=== PATIENT | male | born 1985 | race Caucasian/White ===

== ENCOUNTER 2018-03-30 10:37 | Inpatient (IN) | payer OTHER ==
[2018-03-30 10:57] LABS: ADD MAN DIFF? NO
[2018-03-30 10:59] LABS: BASOPHILS % 0.2 % (0.0-2.0); EOSINOPHILS # 0.1 10^3/ul (0.0-0.5); EOSINOPHILS % 0.5 % (0.0-7.0); HEMATOCRIT 29.6 % (42.0-52.0); HEMOGLOBIN 9.9 g/dl (14.0-18.0); LYMPHOCYTES # 3.5 10^3/ul (0.8-2.9); LYMPHOCYTES % 28.6 % (15.0-51.0); MEAN CORPUSCULAR HEMOGLOBIN 30.7 pg (29.0-33.0); MEAN CORPUSCULAR HGB CONC 33.4 g/dl (32.0-37.0); MEAN CORPUSCULAR VOLUME 91.9 fl (82.0-101.0); MEAN PLATELET VOLUME 9.9 fl (7.4-10.4); MONOCYTE # 1.1 10^3/ul (0.3-0.9); MONOCYTES % 8.6 % (0.0-11.0); NEUTROPHIL # 7.4 10^3/ul (1.6-7.5); PLATELET COUNT 309 10^3/UL (140-415); RED BLOOD COUNT 3.22 10^6/ul (4.70-6.10); RED CELL DISTRIBUTION WIDTH 12.2 % (11.5-14.5)
[2018-03-30 10:59] LABS: WHITE BLOOD COUNT 12.3 10^3/ul (4.8-10.8)
[2018-03-30] MEDS: SOD CHLORIDE 0.9% 1,000 ML IV ×2 (11:05→15:25)
[2018-03-30] MEDS: PANTOPRAZOLE IV 80 MG in SOD CHLORIDE 0.9% 100 ML IVPB (11:06)
[2018-03-30] MEDS: PANTOPRAZOLE 40 MG INJ IV (11:06)
[2018-03-30] MEDS: ONDANSETRON 4 MG INJ IV ×2 (11:06→14:44)
[2018-03-30 11:22] LABS: INR 1.08; PROTIME 14.1 Sec (11.9-14.9); PT RATIO 1.1
[2018-03-30 11:23] LABS: PARTIAL THROMBOPLASTIN TIME 27.3 Sec (23.0-35.0)
[2018-03-30] MEDS: PANTOPRAZOLE IV 80 MG in SOD CHLORIDE 0.9% 100 ML IV ×2 (11:25→18:10)
[2018-03-30 11:39] LABS: ALANINE AMINOTRANSFERASE 27 IU/L (13-69); ALBUMIN 2.9 g/dl (3.3-4.9); ALBUMIN/GLOBULIN RATIO 1.03; ALKALINE PHOSPHATASE 46 IU/L (42-121); AMYLASE 32 U/L (11-123); ANION GAP 14 (5-13); ASPARTATE AMINO TRANSFERASE 22 IU/L (15-46); BILIRUBIN,INDIRECT 0.3 mg/dl (0-1.1); BILIRUBIN,TOTAL 0.3 mg/dl (0.2-1.3); BLOOD UREA NITROGEN 35 mg/dl (7-20); CALCIUM 8.1 mg/dl (8.4-10.2); CARBON DIOXIDE 26 mmol/L (21-31); CHLORIDE 107 mmol/L (97-110); CREATININE 0.69 mg/dl (0.61-1.24); Estimated GFR > 60 mL/min (>60); GLUCOSE 116 mg/dl (70-220); LIPASE 37 U/L (23-300); POTASSIUM 3.9 mmol/L (3.5-5.1); SODIUM 147 mmol/L (135-144); TOTAL PROTEIN 5.7 g/dl (6.1-8.1)
[2018-03-30 11:45] LABS: ACETAMINOPHEN < 10.0 ug/ml (10.0-30.0)
[2018-03-30 11:46] LABS: ETHANOL < 10.0 mg/dl; SALICYLATE < 1.0 mg/dl (5.0-30.0)
[2018-03-30 11:50] LABS: TROPONIN-I < 0.012 ng/ml (0.000-0.120)
[2018-03-30 12:22] LABS: ADD UMIC NO; UR ASCORBIC ACID NEGATIVE (NEGATIVE); UR BILIRUBIN (Dip) NEGATIVE (NEGATIVE); UR BLOOD (Dip) NEGATIVE (NEGATIVE); UR CLARITY CLEAR (CLEAR); UR COLOR YELLOW (YELLOW); UR GLUCOSE (Dip) NEGATIVE (NEGATIVE); UR KETONES (Dip) NEGATIVE (NEGATIVE); UR LEUKOCYTE ESTERASE (Dip) NEGATIVE Leu/ul (NEGATIVE); UR NITRITE (Dip) NEGATIVE (NEGATIVE); UR TOTAL PROTEIN (Dip) NEGATIVE (NEGATIVE); UR UROBILINOGEN (Dip) NEGATIVE (NEGATIVE)
[2018-03-30 12:37] LABS: AMPHETAMINE/METHAMPHETAMINE Negative (NEGATIVE); BARBITURATES Negative (NEGATIVE); BENZODIAZEPINES Negative (NEGATIVE); CANNABINOIDS Negative (NEGATIVE); COCAINE Negative (NEGATIVE); OPIATES Negative (NEGATIVE)
[2018-03-30] MEDS: IOHEXOL 300MG/ML 150 ML BTL (14:24)
[2018-03-30] MEDS: SOD CHLORIDE 0.9% 100 ML (14:24)
[2018-03-30] MEDS ORDERED: ONDANSETRON 4 MG INJ IV (14:30)
[2018-03-30] MEDS ORDERED: ACETAMINOPHEN 325 MG TAB PO ×2 (14:30→15:00)
[2018-03-30] MEDS ORDERED: morphine 4 MG/ML VIAL (14:42)
[2018-03-30] MEDS: morphine 4 MG/ML VIAL IV (14:44)
[2018-03-30] MEDS ORDERED: NACL 0.9% 3 ML SYG IV (15:00)
[2018-03-30] MEDS ORDERED: PANTOPRAZOLE IV 80 MG in SOD CHLORIDE 0.9% 100 ML IV (15:00)
[2018-03-30] MEDS: CEFTRIAXONE 1 GM/50 ML (PMX) 50 ML IVPB (15:26)
[2018-03-30] MEDS: SUCRALFATE (100 MG/ML) 10ML CUP PO ×2 (18:09→20:06)
[2018-03-30] MEDS: LIDOCAINE/MYLANTA 40 ML BTL PO (18:09)
[2018-03-30] MEDS: AZITHROMYCIN 500MG/NS (PMX) 250 ML IVPB (18:09)
[2018-03-30] MEDS: OCTREOTIDE 1 MG in DEXTROSE 5% 95 ML IV (18:10)
[2018-03-30 18:45] LABS: HEMATOCRIT 25.6 % (42.0-52.0); HEMOGLOBIN 8.6 g/dl (14.0-18.0)
[2018-03-30] MEDS: morphine 2 MG INJ IV (20:07)
[2018-03-31 00:46] LABS: HEMATOCRIT 24.9 % (42.0-52.0); HEMOGLOBIN 8.4 g/dl (14.0-18.0)
[2018-03-31] MEDS: SOD CHLORIDE 0.9% 1,000 ML IV ×3 (00:51→20:51)
[2018-03-31] MEDS: PANTOPRAZOLE IV 80 MG in SOD CHLORIDE 0.9% 100 ML IV ×3 (01:14→16:13)
[2018-03-31] MEDS: morphine 2 MG INJ IV ×5 (03:51→23:46)
[2018-03-31 07:07] LABS: ADD MAN DIFF? NO
[2018-03-31 07:11] LABS: BASOPHILS % 0.4 % (0.0-2.0); EOSINOPHILS # 0.1 10^3/ul (0.0-0.5); EOSINOPHILS % 1.2 % (0.0-7.0); HEMATOCRIT 23.9 % (42.0-52.0); HEMOGLOBIN 8.1 g/dl (14.0-18.0); LYMPHOCYTES # 3.6 10^3/ul (0.8-2.9); LYMPHOCYTES % 37.2 % (15.0-51.0); MEAN CORPUSCULAR HEMOGLOBIN 30.9 pg (29.0-33.0); MEAN CORPUSCULAR HGB CONC 33.9 g/dl (32.0-37.0); MEAN CORPUSCULAR VOLUME 91.2 fl (82.0-101.0); MEAN PLATELET VOLUME 9.9 fl (7.4-10.4); MONOCYTE # 0.7 10^3/ul (0.3-0.9); MONOCYTES % 7.3 % (0.0-11.0); NEUTROPHIL # 4.9 10^3/ul (1.6-7.5); NEUTROPHILS % 50.9 % (39.0-77.0); PLATELET COUNT 296 10^3/UL (140-415); RED BLOOD COUNT 2.62 10^6/ul (4.70-6.10); RED CELL DISTRIBUTION WIDTH 12.1 % (11.5-14.5)
[2018-03-31 07:11] LABS: WHITE BLOOD COUNT 9.6 10^3/ul (4.8-10.8)
[2018-03-31] MEDS: LIDOCAINE 2% (SDV) 5 ML INJ (07:51)
[2018-03-31] MEDS: MIDAZOLAM 1 MG/ML 2 ML INJ (07:51)
[2018-03-31] MEDS: PROPOFOL 20 ML ×2 (07:51→08:01)
[2018-03-31 08:00] LABS: ALANINE AMINOTRANSFERASE 21 IU/L (13-69); ALBUMIN 2.8 g/dl (3.3-4.9); ALBUMIN/GLOBULIN RATIO 1.07; ALKALINE PHOSPHATASE 42 IU/L (42-121); ANION GAP 8 (5-13); ASPARTATE AMINO TRANSFERASE 17 IU/L (15-46); BILIRUBIN,INDIRECT 0.5 mg/dl (0-1.1); BILIRUBIN,TOTAL 0.5 mg/dl (0.2-1.3); BLOOD UREA NITROGEN 15 mg/dl (7-20); CALCIUM 8.3 mg/dl (8.4-10.2); CARBON DIOXIDE 28 mmol/L (21-31); CHLORIDE 104 mmol/L (97-110); Estimated GFR > 60 mL/min (>60); GLUCOSE 101 mg/dl (70-220); MAGNESIUM 1.7 mg/dl (1.7-2.5); POTASSIUM 4.1 mmol/L (3.5-5.1); SODIUM 140 mmol/L (135-144); TOTAL PROTEIN 5.4 g/dl (6.1-8.1)
[2018-03-31] MEDS ORDERED: HYDROmorphONE 1 MG/5 ML IV SYRINGE IV ×2 (08:26→08:30)
[2018-03-31] MEDS ORDERED: PROCHLORPERAZINE 10 MG INJ IV (08:30)
[2018-03-31] MEDS ORDERED: DIPHENHYDRAMINE 50 MG INJ IV (08:30)
[2018-03-31] MEDS ORDERED: MEPERIDINE 25 MG INJ IV (08:30)
[2018-03-31] MEDS ORDERED: ONDANSETRON 4 MG INJ IV (08:30)
[2018-03-31] MEDS ORDERED: FENTAnyl 50 MCG/ML VIAL IV ×3 (08:30)
[2018-03-31] MEDS ORDERED: EPINEPHrine 0.1 MG/ML SYG (08:31)
[2018-03-31] MEDS: HYDROmorphONE 1 MG/5 ML IV SYRINGE IV ×2 (08:54→08:55)
[2018-03-31] MEDS: SUCRALFATE (100 MG/ML) 10ML CUP PO ×4 (09:21→20:49)
[2018-03-31] MEDS: INFLUENZA VIRUS VACCINE 0.5 ML (DISPENSING) IM* (09:43)
[2018-03-31] MEDS: ONDANSETRON 4 MG INJ IV (10:01)
[2018-03-31] MEDS: OCTREOTIDE 1 MG in DEXTROSE 5% 95 ML IV (11:08)
[2018-03-31] MEDS: OCTREOTIDE 50 MCG in SOD CHLORIDE 0.9% 50 ML IVPB (11:08)
[2018-03-31 11:26] LABS: HEMATOCRIT 23.1 % (42.0-52.0); HEMOGLOBIN 7.7 g/dl (14.0-18.0)
[2018-03-31] MEDS: CEFTRIAXONE 1 GM/50 ML (PMX) 50 ML IVPB (15:36)
[2018-03-31 16:45] LABS: IMMEDIATE SPIN CROSSMATCH 1 2
[2018-03-31] MEDS: AZITHROMYCIN 500MG/NS (PMX) 250 ML IVPB (16:54)
[2018-04-01 01:12] LABS: HEMATOCRIT 21.2 % (42.0-52.0); HEMOGLOBIN 7.2 g/dl (14.0-18.0)
[2018-04-01] MEDS: morphine 2 MG INJ IV ×5 (04:16→20:30)
[2018-04-01] MEDS: PANTOPRAZOLE IV 80 MG in SOD CHLORIDE 0.9% 100 ML IV ×2 (05:15→15:00)
[2018-04-01] MEDS: OCTREOTIDE 1 MG in DEXTROSE 5% 95 ML IV (05:15)
[2018-04-01] MEDS: SOD CHLORIDE 0.9% 1,000 ML IV ×3 (07:15→23:16)
[2018-04-01 09:22] LABS: ADD MAN DIFF? NO
[2018-04-01 09:23] LABS: WHITE BLOOD COUNT 7.8 10^3/ul (4.8-10.8)
[2018-04-01 09:23] LABS: BASOPHILS % 0.3 % (0.0-2.0); EOSINOPHILS # 0.1 10^3/ul (0.0-0.5); EOSINOPHILS % 1.5 % (0.0-7.0); HEMATOCRIT 24.1 % (42.0-52.0); HEMOGLOBIN 8.3 g/dl (14.0-18.0); LYMPHOCYTES # 3.2 10^3/ul (0.8-2.9); LYMPHOCYTES % 40.5 % (15.0-51.0); MEAN CORPUSCULAR HEMOGLOBIN 30.5 pg (29.0-33.0); MEAN CORPUSCULAR HGB CONC 34.4 g/dl (32.0-37.0); MEAN CORPUSCULAR VOLUME 88.6 fl (82.0-101.0); MEAN PLATELET VOLUME 9.7 fl (7.4-10.4); MONOCYTE # 0.6 10^3/ul (0.3-0.9); MONOCYTES % 8.1 % (0.0-11.0); NEUTROPHIL # 3.6 10^3/ul (1.6-7.5); NEUTROPHILS % 46.1 % (39.0-77.0); PLATELET COUNT 258 10^3/UL (140-415); RED BLOOD COUNT 2.72 10^6/ul (4.70-6.10); RED CELL DISTRIBUTION WIDTH 12.5 % (11.5-14.5)
[2018-04-01 09:42] LABS: ANION GAP 7 (5-13); BLOOD UREA NITROGEN 9 mg/dl (7-20); CALCIUM 8.2 mg/dl (8.4-10.2); CARBON DIOXIDE 31 mmol/L (21-31); CHLORIDE 103 mmol/L (97-110); CREATININE 0.71 mg/dl (0.61-1.24); Estimated GFR > 60 mL/min (>60); GLUCOSE 114 mg/dl (70-220); MAGNESIUM 2.2 mg/dl (1.7-2.5); PHOSPHORUS 3.3 mg/dl (2.5-4.9); SODIUM 141 mmol/L (135-144)
[2018-04-01] MEDS: SUCRALFATE (100 MG/ML) 10ML CUP PO ×4 (09:51→20:30)
[2018-04-01 11:10] LABS: HEMATOCRIT 25.6 % (42.0-52.0); HEMOGLOBIN 8.8 g/dl (14.0-18.0)
[2018-04-01] MEDS: CEFTRIAXONE 1 GM/50 ML (PMX) 50 ML IVPB (16:25)
[2018-04-01] MEDS: AZITHROMYCIN 500MG/NS (PMX) 250 ML IVPB (18:04)
[2018-04-01 18:28] LABS: HEMATOCRIT 25.8 % (42.0-52.0); HEMOGLOBIN 8.9 g/dl (14.0-18.0)
[2018-04-02 00:57] LABS: HEMATOCRIT 24.3 % (42.0-52.0); HEMOGLOBIN 8.3 g/dl (14.0-18.0)
[2018-04-02] MEDS: OCTREOTIDE 1 MG in DEXTROSE 5% 95 ML IV (01:07)
[2018-04-02] MEDS: morphine 2 MG INJ IV ×5 (01:07→22:12)
[2018-04-02] MEDS: PANTOPRAZOLE IV 80 MG in SOD CHLORIDE 0.9% 100 ML IV ×2 (01:11→11:31)
[2018-04-02 07:00] LABS: ADD MAN DIFF? NO
[2018-04-02 07:05] LABS: BASOPHILS % 0.3 % (0.0-2.0); EOSINOPHILS # 0.2 10^3/ul (0.0-0.5); HEMATOCRIT 24.1 % (42.0-52.0); HEMOGLOBIN 8.2 g/dl (14.0-18.0); LYMPHOCYTES # 3.4 10^3/ul (0.8-2.9); MEAN CORPUSCULAR HEMOGLOBIN 30.1 pg (29.0-33.0); MEAN CORPUSCULAR VOLUME 88.6 fl (82.0-101.0); MEAN PLATELET VOLUME 9.5 fl (7.4-10.4); MONOCYTE # 0.8 10^3/ul (0.3-0.9); MONOCYTES % 9.7 % (0.0-11.0); NEUTROPHIL # 3.3 10^3/ul (1.6-7.5); NEUTROPHILS % 40.7 % (39.0-77.0); PLATELET COUNT 297 10^3/UL (140-415); RED BLOOD COUNT 2.72 10^6/ul (4.70-6.10); RED CELL DISTRIBUTION WIDTH 12.5 % (11.5-14.5)
[2018-04-02 07:27] LABS: ANION GAP 5 (5-13); BLOOD UREA NITROGEN 12 mg/dl (7-20); CALCIUM 8.3 mg/dl (8.4-10.2); CARBON DIOXIDE 31 mmol/L (21-31); CHLORIDE 103 mmol/L (97-110); CREATININE 0.72 mg/dl (0.61-1.24); Estimated GFR > 60 mL/min (>60); GLUCOSE 112 mg/dl (70-220); MAGNESIUM 2.1 mg/dl (1.7-2.5); PHOSPHORUS 3.8 mg/dl (2.5-4.9); POTASSIUM 4.1 mmol/L (3.5-5.1); SODIUM 139 mmol/L (135-144)
[2018-04-02] MEDS: SUCRALFATE (100 MG/ML) 10ML CUP PO ×4 (10:14→22:08)
[2018-04-02] MEDS: SOD CHLORIDE 0.9% 1,000 ML IV ×2 (11:31→23:09)
[2018-04-02 14:40] LABS: HEMATOCRIT 24.5 % (42.0-52.0); HEMOGLOBIN 8.4 g/dl (14.0-18.0)
[2018-04-02] MEDS: CEFTRIAXONE 1 GM/50 ML (PMX) 50 ML IVPB (15:38)
[2018-04-02] MEDS: AZITHROMYCIN 500MG/NS (PMX) 250 ML IVPB (16:23)
[2018-04-02] MEDS: PANTOPRAZOLE (EC) 40 MG TAB PO (17:51)
[2018-04-02 19:02] LABS: HEMATOCRIT 25.7 % (42.0-52.0); HEMOGLOBIN 8.8 g/dl (14.0-18.0)
[2018-04-03 01:06] LABS: HEMATOCRIT 27.2 % (42.0-52.0); HEMOGLOBIN 9.3 g/dl (14.0-18.0)
[2018-04-03 06:23] LABS: HEMATOCRIT 24.3 % (42.0-52.0); HEMOGLOBIN 8.4 g/dl (14.0-18.0)
[2018-04-03] MEDS: PANTOPRAZOLE (EC) 40 MG TAB PO ×2 (06:27→17:31)
[2018-04-03] MEDS: morphine 2 MG INJ IV ×3 (06:32→15:44)
[2018-04-03] MEDS: SUCRALFATE (100 MG/ML) 10ML CUP PO ×4 (08:04→21:38)
[2018-04-03] MEDS: SOD CHLORIDE 0.9% 1,000 ML IV ×2 (09:54→18:04)
[2018-04-03] MEDS: CEFTRIAXONE 1 GM/50 ML (PMX) 50 ML IVPB (14:51)
[2018-04-03] MEDS: AZITHROMYCIN 500MG/NS (PMX) 250 ML IVPB (15:43)
[2018-04-03] MEDS: ONDANSETRON 4 MG INJ IV (16:33)
[2018-04-03] MEDS: SOD CHLORIDE 0.9% 500 ML IV ×2 (17:12→19:32)
[2018-04-03] MEDS: LORAZEPAM 2 MG INJ IV (17:31)
[2018-04-03 17:41] LABS: HEMATOCRIT 23.9 % (42.0-52.0); HEMOGLOBIN 8.1 g/dl (14.0-18.0)
[2018-04-03] MEDS: HYDROmorphONE 0.5 MG/0.5 ML SYG IV (22:33)
[2018-04-04] MEDS: ONDANSETRON 4 MG INJ IV ×2 (01:35→18:49)
[2018-04-04] MEDS: SOD CHLORIDE 0.9% 1,000 ML IV ×3 (04:51→23:40)
[2018-04-04] MEDS: PANTOPRAZOLE (EC) 40 MG TAB PO (06:32)
[2018-04-04 06:35] LABS: ADD MAN DIFF? NO
[2018-04-04 06:42] LABS: WHITE BLOOD COUNT 10.2 10^3/ul (4.8-10.8)
[2018-04-04 06:42] LABS: ABNORMAL IP MESSAGE 1; BASOPHILS % 0.2 % (0.0-2.0); EOSINOPHILS # 0.1 10^3/ul (0.0-0.5); EOSINOPHILS % 0.6 % (0.0-7.0); LYMPHOCYTES # 2.7 10^3/ul (0.8-2.9); LYMPHOCYTES % 26.6 % (15.0-51.0); MEAN CORPUSCULAR HEMOGLOBIN 30.2 pg (29.0-33.0); MEAN CORPUSCULAR HGB CONC 33.7 g/dl (32.0-37.0); MEAN CORPUSCULAR VOLUME 89.6 fl (82.0-101.0); MEAN PLATELET VOLUME 9.8 fl (7.4-10.4); MONOCYTE # 0.6 10^3/ul (0.3-0.9); NEUTROPHIL # 6.4 10^3/ul (1.6-7.5); NEUTROPHILS % 62.6 % (39.0-77.0); PLATELET COUNT 337 10^3/UL (140-415); POSITIVE DIFF @See below; RED BLOOD COUNT 2.12 10^6/ul (4.70-6.10); RED CELL DISTRIBUTION WIDTH 12.6 % (11.5-14.5)
[2018-04-04 06:57] LABS: HEMOGLOBIN 6.4 g/dl (14.0-18.0); PATH REVIEW? YES
[2018-04-04] MEDS: morphine 2 MG INJ IV ×2 (07:46→17:23)
[2018-04-04 08:18] LABS: ANISOCYTOSIS 1+ (0-0); BAND NEUTROPHILS #M 1.2 10^3/ul (0.0-0.6); BAND NEUTROPHILS % (M) 12 % (0-4); LYMPHOCYTES #M 1.7 10^3/ul (0.8-2.9); LYMPHOCYTES % (M) 17 % (15-51); MICROCYTOSIS 1+ (0-0); MONOCYTE #M 0.3 10^3/ul (0.3-0.9); MONOCYTES % (M) 3 % (0-11); PLATELET ESTIMATE NORMAL; POLYCHROMASIA 1+ (0-0); SEG NEUT #M 7.1 10^3/ul (1.6-7.5); SEGMENTED NEUTROPHILS (M) % 68 % (39-77); SMUDGE%M 32 % (0-0)
[2018-04-04] MEDS: SUCRALFATE (100 MG/ML) 10ML CUP PO (08:25)
[2018-04-04 09:36] LABS: IMMEDIATE SPIN CROSSMATCH 1 2
[2018-04-04] MEDS: PANTOPRAZOLE IV 80 MG in SOD CHLORIDE 0.9% 100 ML IV ×2 (10:08→20:00)
[2018-04-04] MEDS: OCTREOTIDE 1 MG in DEXTROSE 5% 95 ML IV (10:11)
[2018-04-04] MEDS: HYDROmorphONE 0.5 MG/0.5 ML SYG IV ×2 (11:23→21:04)
[2018-04-04] MEDS: FENTAnyl 50 MCG/ML VIAL (16:02)
[2018-04-04] MEDS: PROPOFOL 20 ML (16:02)
[2018-04-04] MEDS: CEFTRIAXONE 1 GM/50 ML (PMX) 50 ML IVPB (17:20)
[2018-04-04 18:03] LABS: HEMATOCRIT 26.5 % (42.0-52.0); HEMOGLOBIN 9.1 g/dl (14.0-18.0)
[2018-04-04] MEDS: AZITHROMYCIN 500MG/NS (PMX) 250 ML IVPB (18:29)
[2018-04-04] MEDS: BISACODYL (EC) 5 MG TAB PO (18:29)
[2018-04-04] MEDS: POLYETHYLENE GLYCOL 3350 119 GM POWDER PO (18:30)
[2018-04-04] MEDS: MAGNESIUM CITRATE 300 ML BTL PO (18:30)
[2018-04-05 01:15] LABS: HEMATOCRIT 26.3 % (42.0-52.0); HEMOGLOBIN 9.2 g/dl (14.0-18.0)
[2018-04-05] MEDS: HYDROmorphONE 0.5 MG/0.5 ML SYG IV ×5 (02:38→21:18)
[2018-04-05] MEDS: PANTOPRAZOLE IV 80 MG in SOD CHLORIDE 0.9% 100 ML IV ×3 (06:19→17:31)
[2018-04-05] MEDS: OCTREOTIDE 1 MG in DEXTROSE 5% 95 ML IV (06:19)
[2018-04-05] MEDS: POLYETHYLENE GLYCOL 3350 119 GM POWDER PO (06:19)
[2018-04-05 06:50] LABS: HEMATOCRIT 26.4 % (42.0-52.0); HEMOGLOBIN 9.2 g/dl (14.0-18.0)
[2018-04-05] MEDS: BISACODYL (EC) 5 MG TAB PO (08:31)
[2018-04-05] MEDS: SOD CHLORIDE 0.9% 1,000 ML IV ×2 (10:23→19:35)
[2018-04-05 13:18] LABS: HEMATOCRIT 27.2 % (42.0-52.0); HEMOGLOBIN 9.4 g/dl (14.0-18.0)
[2018-04-05] MEDS: CEFTRIAXONE 1 GM/50 ML (PMX) 50 ML IVPB (15:04)
[2018-04-05] MEDS: AZITHROMYCIN 500MG/NS (PMX) 250 ML IVPB (16:03)
[2018-04-05 18:10] LABS: HEMATOCRIT 27.6 % (42.0-52.0); HEMOGLOBIN 9.5 g/dl (14.0-18.0)
[2018-04-06 00:49] LABS: HEMATOCRIT 27.1 % (42.0-52.0); HEMOGLOBIN 9.2 g/dl (14.0-18.0)
[2018-04-06] MEDS: OCTREOTIDE 1 MG in DEXTROSE 5% 95 ML IV (02:09)
[2018-04-06] MEDS: SOD CHLORIDE 0.9% 1,000 ML IV ×2 (04:33→17:36)
[2018-04-06 07:09] LABS: HEMATOCRIT 26.6 % (42.0-52.0); HEMOGLOBIN 9.1 g/dl (14.0-18.0)
[2018-04-06] MEDS: HYDROmorphONE 0.5 MG/0.5 ML SYG IV ×3 (10:02→20:22)
[2018-04-06] MEDS: PANTOPRAZOLE IV 80 MG in SOD CHLORIDE 0.9% 100 ML IV (12:00)
[2018-04-06 12:31] LABS: HEMATOCRIT 27.5 % (42.0-52.0); HEMOGLOBIN 9.5 g/dl (14.0-18.0)
[2018-04-06] MEDS: PROPOFOL 60 ML (14:38)
[2018-04-06] MEDS: morphine 2 MG INJ IV (16:46)
[2018-04-06] MEDS: PANTOPRAZOLE (EC) 40 MG TAB PO (17:36)
[2018-04-06 19:11] LABS: HEMATOCRIT 26.9 % (42.0-52.0); HEMOGLOBIN 9.3 g/dl (14.0-18.0)
[2018-04-06] MEDS: SUCRALFATE 1 GM TAB PO (20:29)
[2018-04-07] MEDS: HYDROmorphONE 0.5 MG/0.5 ML SYG IV ×2 (00:22→08:38)
[2018-04-07 01:09] LABS: HEMATOCRIT 25.8 % (42.0-52.0); HEMOGLOBIN 8.9 g/dl (14.0-18.0)
[2018-04-07] MEDS: SOD CHLORIDE 0.9% 1,000 ML IV (04:40)
[2018-04-07 06:16] LABS: HEMATOCRIT 24.7 % (42.0-52.0); HEMOGLOBIN 8.5 g/dl (14.0-18.0)
[2018-04-07] MEDS: PANTOPRAZOLE (EC) 40 MG TAB PO (06:23)
[2018-04-07] MEDS: POLYETHYLENE GLYCOL 17 GM PACKET PO (08:37)
[2018-04-07] MEDS: SUCRALFATE 1 GM TAB PO (08:37)
[2018-04-07] MEDS: morphine 2 MG INJ IV (12:33)
== END 2018-04-07 13:55 | disposition home or self-care (01) | DRG 378 ==
LOC: TEL 03-31 18:04 → E/R 10:37 → TEL 15:12
PROC: 0W3P8ZZ Control Bleeding in Gastrointestinal Tract, Via Natural or Artificial Opening Endoscopic (ICD-10-PCS; principal; 2018-03-31 07:40)
PROC: 0DJ08ZZ Inspection of Upper Intestinal Tract, Via Natural or Artificial Opening Endoscopic (ICD-10-PCS; 2018-03-31 07:40)
PROC: 0DJD8ZZ Inspection of Lower Intestinal Tract, Via Natural or Artificial Opening Endoscopic (ICD-10-PCS; 2018-03-31 07:40)
PROC: 30233N1 Transfusion of Nonautologous Red Blood Cells into Peripheral Vein, Percutaneous Approach (ICD-10-PCS; 2018-03-31 07:40)
DX: K25.0 Acute gastric ulcer with hemorrhage (principal); D62 Acute posthemorrhagic anemia; K92.0 Hematemesis; J02.9 Acute pharyngitis, unspecified; J03.90 Acute tonsillitis, unspecified; F17.200 Nicotine dependence, unspecified, uncomplicated; K64.0 First degree hemorrhoids; R10.13 Epigastric pain; Z79.1 Long term (current) use of non-steroidal anti-inflammatories (NSAID)
CPT/HCPCS: 36415; 36430; 71045; 74177; 78278; 80048; 80053; 80307; 81003; 82150; 83690; 83735; 84100; 84484; 85014; 85018; 85025; 85610; 85730; 86850; 86900; 86901; 86920; 88305; 90686; 93005; 96374; 96375; 96376; 99291-25

== ENCOUNTER 2018-04-13 12:39 | Emergency (ER) | payer OTHER ==
[2018-04-13 13:05] LABS: ADD MAN DIFF? NO
[2018-04-13] MEDS: PANTOPRAZOLE 40 MG INJ IV (13:05)
[2018-04-13] MEDS: ONDANSETRON 4 MG INJ IV (13:05)
[2018-04-13] MEDS: LIDOCAINE/MYLANTA 40 ML BTL PO (13:05)
[2018-04-13] MEDS: SOD CHLORIDE 0.9% 1,000 ML IV (13:05)
[2018-04-13 13:10] LABS: BASOPHILS % 0.3 % (0.0-2.0); EOSINOPHILS % 0.5 % (0.0-7.0); HEMATOCRIT 27.6 % (42.0-52.0); HEMOGLOBIN 9.3 g/dl (14.0-18.0); LYMPHOCYTES # 2.5 10^3/ul (0.8-2.9); LYMPHOCYTES % 29.1 % (15.0-51.0); MEAN CORPUSCULAR HEMOGLOBIN 30.8 pg (29.0-33.0); MEAN CORPUSCULAR HGB CONC 33.7 g/dl (32.0-37.0); MEAN CORPUSCULAR VOLUME 91.4 fl (82.0-101.0); MEAN PLATELET VOLUME 9.7 fl (7.4-10.4); MONOCYTE # 0.6 10^3/ul (0.3-0.9); MONOCYTES % 6.6 % (0.0-11.0); NEUTROPHIL # 5.5 10^3/ul (1.6-7.5); PLATELET COUNT 485 10^3/UL (140-415); RED BLOOD COUNT 3.02 10^6/ul (4.70-6.10); RED CELL DISTRIBUTION WIDTH 13.6 % (11.5-14.5)
[2018-04-13 13:10] LABS: WHITE BLOOD COUNT 8.7 10^3/ul (4.8-10.8)
[2018-04-13 13:45] LABS: INR 1.06; PROTIME 13.9 Sec (11.9-14.9); PT RATIO 1.1
[2018-04-13 13:46] LABS: PARTIAL THROMBOPLASTIN TIME 30.3 Sec (23.0-35.0)
[2018-04-13 14:11] LABS: ALANINE AMINOTRANSFERASE 28 IU/L (13-69); ALBUMIN 4.2 g/dl (3.3-4.9); ALKALINE PHOSPHATASE 46 IU/L (42-121); ANION GAP 10 (5-13); ASPARTATE AMINO TRANSFERASE 22 IU/L (15-46); BILIRUBIN,INDIRECT 0.5 mg/dl (0-1.1); BILIRUBIN,TOTAL 0.5 mg/dl (0.2-1.3); BLOOD UREA NITROGEN 31 mg/dl (7-20); CALCIUM 9.1 mg/dl (8.4-10.2); CARBON DIOXIDE 26 mmol/L (21-31); CHLORIDE 104 mmol/L (97-110); CREATININE 0.69 mg/dl (0.61-1.24); Estimated GFR > 60 mL/min (>60); GLUCOSE 95 mg/dl (70-220); POTASSIUM 4.6 mmol/L (3.5-5.1); SODIUM 140 mmol/L (135-144); TOTAL PROTEIN 7.2 g/dl (6.1-8.1); TROPONIN-I < 0.012 ng/ml (0.000-0.120)
[2018-04-13] MEDS: morphine 4 MG/ML VIAL IV (14:12)
== END 2018-04-13 14:40 | disposition home or self-care (01) ==
LOC: E/R 12:39
DX: K25.0 Acute gastric ulcer with hemorrhage (principal); D64.9 Anemia, unspecified; F17.210 Nicotine dependence, cigarettes, uncomplicated
CPT/HCPCS: 36415; 80053; 84484; 85025; 85610; 85730; 86850; 86900; 86901; 96374; 96375; 99284-25